=== PATIENT | female | born 1985 | race Caucasian/White ===

== ENCOUNTER → 2017-04-18 | Outpatient (CLI) | payer BC | END | disposition home or self-care (01) | LOC: LABWHC1 13:45 | PROVIDERS: ATTEND Obstetrics & Gynecology | DX: Z34.90 Encounter for supervision of normal pregnancy, unspecified, unspecified trimester (principal); Z3A.00 Weeks of gestation of pregnancy not specified | CPT/HCPCS: 36415; 84702 ==

== ENCOUNTER → 2017-06-16 | Outpatient (CLI) | payer BC ==
[2017-06-16 09:24] LABS: CH 30.7; CHCM 34.6; HCT 37.1 % (34.0-46.0); HDW 2.93; HGB 13.1 gm/dL (11.4-16.0); MCH 31.4 pg (25.0-35.0); MCHC 35.2 g/dL (31.0-37.0); MCV 89.3 fL (80.0-100.0); Mean Platelet Volume 8.4; RBC 4.16 m/uL (3.80-5.40); RDW 14.4 % (11.5-15.5); WBC 6.5 k/uL (3.8-10.6)
[2017-06-16 09:43] LABS: Glucose 70 mg/dL (74-99); Non-African American GFR(MDRD) >60 (>60 ml/min/1.73 sqM)
[2017-06-16 10:13] LABS: Hepatitis B Surface Ag Index 0.07
== END | disposition home or self-care (01) ==
LOC: LABWHC1 09:00
PROVIDERS: ATTEND Obstetrics & Gynecology
DX: Z34.81 Encounter for supervision of other normal pregnancy, first trimester (principal)
CPT/HCPCS: 36415; 82565; 82947; 85027; 86762; 86780; 86850; 86900; 86901; 87340

== ENCOUNTER 2017-11-30 19:16 | Inpatient (IN) | payer BC ==
[2017-11-30] MEDS ORDERED: OXYTOCIN 10 UNIT/ML 1 ML VIAL IM PRN (20:21)
[2017-11-30] MEDS ORDERED: METHYLERGONOVINE 0.2 MG/ML 1 ML AMP IM PRN (20:21)
[2017-11-30] MEDS ORDERED: CARBOPROST TROMETHAMINE 250 MCG/ML 1 ML AMP IM PRN (20:21)
[2017-11-30] MEDS ORDERED: TERBUTALINE 1 MG/ML VIAL SQ PRN (20:21)
[2017-11-30] MEDS ORDERED: LIDOCAINE 1% (PF) 10 MG/ML (30 ML SDV) SQ PRN (20:21)
[2017-11-30] MEDS ORDERED: LACTATED RINGERS 1,000 ML IV SCH ×2 (20:30)
[2017-11-30] MEDS ORDERED: BUPIVACAINE (PF) 0.25% 30 ML VIAL ONE (20:45)
[2017-11-30] MEDS ORDERED: fentaNYL (PF) 50 MCG/ML 5 ML AMP ONE (20:45)
[2017-11-30] MEDS ORDERED: SODIUM CHLORIDE 0.9% 100 ML BAG ONE (20:45)
[2017-11-30 21:10] LABS: Basophils % (A) 0 %; Eosinophils % (A) 0 %; HCT 38.2 % (34.0-46.0); HGB 13.4 gm/dL (11.4-16.0); Lymphocytes # (A) 1.1 k/uL (1.0-4.8); Lymphocytes % (A) 13 %; MCH 33.3 pg (25.0-35.0); MCHC 35.1 g/dL (31.0-37.0); Mean Platelet Volume 8.7; Monocytes # (A) 0.4 k/uL (0-1.0); Monocytes % (A) 4 %; Neutrophils # (A) 7.1 k/uL (1.3-7.7); Neutrophils % (A) 82 %; Platelet Count 126 k/uL (150-450); RBC 4.02 m/uL (3.80-5.40); RDW 14.7 % (11.5-15.5); WBC 8.7 k/uL (3.8-10.6)
[2017-11-30 21:19] VITALS: BMI 41.7
[2017-11-30] MEDS ORDERED: WITCH HAZEL 1 EACH MED..PAD TOPICAL PRN (22:27)
[2017-11-30] MEDS ORDERED: diphenhydrAMINE 50 MG CAP PO PRN (22:27)
[2017-11-30] MEDS ORDERED: ZOLPIDEM 5 MG TAB PO PRN (22:27)
[2017-11-30] MEDS ORDERED: diphenhydrAMINE 25 MG CAP PO PRN (22:27)
[2017-11-30] MEDS ORDERED: IBUPROFEN 600 MG TAB PO PRN (22:27)
[2017-11-30] MEDS ORDERED: HYDROCORTISONE 2.5% RECTAL CREAM 30 GM TUBE RECTAL PRN (22:27)
[2017-11-30] MEDS ORDERED: SIMETHICONE 80 MG CHEWABLE PO PRN (22:27)
[2017-11-30] MEDS ORDERED: ACETAMINOPHEN TAB 325 MG TAB PO PRN (22:27)
[2017-11-30] MEDS ORDERED: diphenhydrAMINE 50 MG/ML 1 ML VIAL IVP PRN ×2 (22:27)
[2017-11-30] MEDS ORDERED: BENZOCAINE/MENTHOL SPRAY 1 GM/SPRAY AEROSOL TOPICAL PRN (22:27)
[2017-11-30] MEDS ORDERED: LANOLIN CREAM 5 GM TUBE TOPICAL PRN (22:27)
[2017-11-30] MEDS ORDERED: OXYTOCIN 20 UNITS/1000 ML NS 1,000 ML IV SCH (22:30)
--- NOTE | 2017-11-30 22:33 | P.HPOB ---
History of Present Illness H&P Date: 11/30/17 Chief Complaint: Labor 32 year old presents at 38 weeks 6 days in active labor. Her cervix changed from 2 to 4cm dilated, 70% effaced, -2 station. She is deborah every 2-4 minutes. heart tones 130-135 with moderate variability and reactive. Review of Systems All systems: negative Constitutional: Denies chills, Denies fever Eyes: denies blurred vision, denies pain Ears, nose, mouth and throat: Denies headache, Denies sore throat Cardiovascular: Denies chest pain, Denies shortness of breath Respiratory: Denies cough Gastrointestinal: Denies abdominal pain, Denies diarrhea, Denies nausea, Denies vomiting Genitourinary: Denies dysuria, Denies hematuria Musculoskeletal: Denies myalgias Integumentary: Denies pruritus, Denies rash Neurological: Denies numbness, Denies weakness Psychiatric: Denies anxiety, Denies depression Endocrine: Denies fatigue, Denies weight change Past Medical History Past Medical History: No Reported History Additional Past Medical History / Comment(s): OB history: First was a for distress. Her next three were successful . This is her fifth and she has been seeing Dr Brown since 7 weeks.O+, abs neg, Rub Imm, RPR NR, Hep B neg. Platelets have been checked with every trimester and normal. Normal 1hr GTT. GBS neg. History of Any Multi-Drug Resistant Organisms: None Reported Past Surgical History: Section, Tonsillectomy Additional Past Surgical History / Comment(s): Oral surgery Past Anesthesia/Blood Transfusion Reactions: No Reported Reaction Past Psychological History: No Psychological Hx Reported Smoking Status: Never smoker Past Alcohol Use History: None Reported Past Drug Use History: None Reported - Past Family History Father Family Medical History: No Reported History Medications and Allergies Home Medications Medication Instructions Recorded Confirmed Type Jqg-Otxd-Sdozj Acid 1 each PO DAILY 03/18/14 11/30/17 History [-U Capsule] Allergies Allergy/AdvReac Type Severity Reaction Status Date / Time Sulfa (Sulfonamide Allergy Rash/Hives Verified 11/30/17 19:25 Antibiotics) Exam Osteopathic Statement: *. No significant issues noted on an osteopathic structural exam other than those noted in the History and Physical/Consult. - Vital Signs Vital signs: Vital Signs Temp Pulse Resp BP Pulse Ox 11/30/17 21:01 97.5 F L 83 16 131/76 99 11/30/17 20:28 97.5 F L 83 16 131/76 Intake and Output 11/30/17 11/30/17 11/30/17 06:59 14:59 22:59 Other: Weight 110.223 kg Patient Weight 12/01/17 06:59 Weight 110.223 kg Heart: Regular rate and rhythm Lungs: Clear to auscultation bilaterally Abdomen: Soft, nontender Extremities: Negative Homans sign Results Result Diagrams: 11/30/17 20:20 Abnormal Lab Results - Last 24 Hours (Table) 11/30/17 Range/Units 20:20 Plt Count 126 L (150-450) k/uL Assessment and Plan (1) Normal labor Current Visit: No Status: Acute Code(s): O80 - ENCOUNTER FOR FULL-TERM UNCOMPLICATED DELIVERY; Z37.9 - OUTCOME OF DELIVERY, UNSPECIFIED SNOMED Code(s ): 41617529 Plan: 1. Admit to family place 2. Epidural for pain control 3. Anticipate normal vaginal delivery
--- NOTE | 2017-11-30 22:37 | P.PROBDLV ---
Vaginal Delivery Note - . Vaginal Delivery Note: 2-year-old presents at 38 weeks and 6 days in active labor. Her cervix was 2 cm in triage and changed to 4 cm dilated, 70% effaced, -2 station. She is deborah every 2-4 minutes. heart tones 130 to 135 with moderate variability and reactive. Patient was given an epidural for pain control. Soon after that amniotomy was performed when she was 7 cm dilated 90% effaced and -1 station at 2101, clear fluid noted. The patient started to notice that her right eye seems droopy the family noticed that as well. 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 The epidural was then pulled. Her eye symptoms resolved soon after this. Her cervix is completely dilated at 2205. She pushed, and delivered a viable male over intact perineum at 2210. Head delivered OA , anterior shoulder delivered gentle downward traction followed by posterior shoulder and rest of body. Nose and mouth bulb suctioned, cord clamped and cut , infant placed on mother's abdomen. Apgars 9, 9, weight 8 lbs. 3 oz. Placenta delivered manually after the cord evulsed, at 2221. The placenta was inspected and all pieces seem to be there. Vagina, cervix, perineum inspected. No lacerations noted. Estimated blood loss 200 mL. Mother and baby in stable condition.
--- NOTE | 2017-12-01 06:10 | P.PNOBGVD ---
Subjective - Subjective Patient reports: Reports appetite normal, Reports voiding normally, Reports pain well controlled, Reports ambulating normally : doing well Objective - Latest Vital Signs Latest vital signs: Vital Signs Temp Pulse Resp BP Pulse Ox 12/01/17 04:00 98.1 F 84 16 129/71 12/01/17 00:23 98.5 F 94 16 104/63 11/30/17 23:53 96 16 108/61 11/30/17 23:23 93 16 110/70 11/30/17 23:08 85 16 112/60 11/30/17 22:53 88 16 131/59 11/30/17 22:38 99 F 85 16 119/60 11/30/17 22:23 90 16 120/58 11/30/17 21:01 97.5 F L 83 16 131/76 99 11/30/17 20:28 97.5 F L 83 16 131/76 Intake and Output 11/30/17 11/30/17 12/01/17 14:59 22:59 06:59 Intake Total 1000 Output Total 200 200 Balance -200 800 Intake: IV 1000 Lactated Ringers 1,000 ml 1000 @ 999 mls/hr IV .Q1H1M SEVERIANO Rx#:[id number] Output: Estimated Blood Loss 200 200 Other: # Voids 1 Weight 110.223 kg Patient Weight 12/01/17 06:59 Weight 110.223 kg - Exam Lungs: bilateral: normal Chest: Normal S1, Normal S2 Extremities: Present: normal Abdomen: Present: normal appearance, soft Uterus: Present: normal, firm - Labs Labs: Abnormal Lab Results - Last 24 Hours (Table) 11/30/17 Range/Units 20:20 Plt Count 126 L (150-450) k/uL Assessment and Plan Assessment: Post day #1. Patient is resting without complaints. Patient has had normal lochia. Uterus is firm nontender. My impression is that this is a normal course. Plan is to continue routine care and most likely discharge home tomorrow. (1) Normal labor and delivery Current Visit: No Status: Acute Priority: High Code(s): O80 - ENCOUNTER FOR FULL-TERM UNCOMPLICATED DELIVERY SNOMED Code(s): 17373214
[2017-12-01] MEDS ORDERED: BUPIVACAINE (PF) 0.25% 25 ML, fentaNYL (PF) 200 MCG in SODIUM CHLORIDE 0.9% 71 ML EPIDURAL ONE (08:00)
[2017-12-01] MEDS: SENNOSIDES-DOCUSATE SODIUM 1 EACH TAB PO SCH (08:05)
[2017-12-01] MEDS ORDERED: PRENATAL VIT-IRON-FOLIC ACID 1 EACH CAP PO SCH (09:00)
[2017-12-01 16:03] VITALS: RESP 16
[2017-12-02] MEDS: SENNOSIDES-DOCUSATE SODIUM 1 EACH TAB PO SCH ×2 (01:46→07:57)
--- NOTE | 2017-12-02 06:11 | P.PNOBGVD ---
Subjective - Subjective Patient reports: Reports appetite normal, Reports voiding normally, Reports pain well controlled, Reports ambulating normally : doing well Objective - Latest Vital Signs Latest vital signs: Vital Signs Temp Pulse Resp BP 12/02/17 00:00 98.2 F 80 16 136/73 12/01/17 20:00 98.5 F 84 16 131/84 12/01/17 16:02 97.2 F L 80 16 128/79 12/01/17 12:45 97.9 F 79 20 123/80 12/01/17 08:08 97.9 F 83 16 125/75 Intake and Output 12/01/17 12/01/17 12/02/17 14:59 22:59 06:59 Other: # Voids 1 1 1 - Exam Lungs: bilateral: normal Chest: Normal S1, Normal S2 Extremities: Present: normal Abdomen: Present: normal appearance, soft Uterus: Present: normal, firm Assessment and Plan Assessment: Post day #2. Patient is resting without new complaints. Vital signs are stable she is afebrile. Uterus is firm nontender and she continues to have normal lochia. My impression is she had normal course. Plan is to discharge home later today. (1) Normal labor and delivery Current Visit: No Status: Acute Priority: High Code(s): O80 - ENCOUNTER FOR FULL-TERM UNCOMPLICATED DELIVERY SNOMED Code(s): 35759902
--- NOTE | 2017-12-02 06:13 | P.DS ---
Providers Date of admission: 11/30/17 20:13 Expected date of discharge: 12/02/17 Attending physician: Enmanuel Brown Primary care physician: Stated None - Discharge Diagnosis(es) (1) Normal labor and delivery Current Visit: No Status: Acute Priority: High Hospital Course: Please see dictated H&P per Dr. Duran on this patient's admission. Brief summary is a pleasant 32-year-old 5 para 4 female 38-6/7 weeks gestation admitted to labor and delivery in active labor. Patient's subsequent goes on to have a vaginal after section of a viable male infant. Please see dictated delivery note. 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 she also had manual extraction of placenta secondary to cord avulsion. Patient' s bleeding was normal and on or 2's felt to be stable for discharge home follow up with me in 6 weeks. Procedures: Vaginal after section and manual removal of placenta. Patient Condition at Discharge: Good Plan - Discharge Summary New Discharge Prescriptions: New Ibuprofen [Motrin] 600 mg PO Q6HR PRN #40 tab PRN Reason: Mild Pain Or Fever >= 100.5 No Action Vgc-Tdhp-Toudq Acid [-U Capsule] 1 each PO DAILY Discharge Medication List Afi-Lnxs-Bqamo Acid [-U Capsule] 1 each PO DAILY 03/18/14 [ History] Ibuprofen [Motrin] 600 mg PO Q6HR PRN #40 tab 12/02/17 [Rx] Follow up Appointment(s)/Referral(s): Enmanuel Brown MD [STAFF PHYSICIAN] - 6 Weeks Patient Instructions/Handouts: Vaginal Delivery (DC) Activity/Diet/Wound Care/Special Instructions: No intercourse or anything per vagina for 6 weeks. Please call if any fever, chills, excessive vaginal bleeding, and/or abdominal pain. Discharge Disposition: HOME SELF-CARE
[2017-12-02 07:56] VITALS: BP 114/77; PULSE 83; TEMP 97.7
== END 2017-12-02 09:50 | disposition home or self-care (01) | DRG 767 ==
LOC: FBPOP 19:16 → 4FBP 20:13
PROVIDERS: ADMIT Obstetrics & Gynecology; ATTEND Obstetrics & Gynecology
PROC: 10E0XZZ Delivery of Products of Conception, External Approach (ICD-10-PCS; principal; 2017-11-30)
PROC: 10D17Z9 Manual Extraction of Products of Conception, Retained, Via Natural or Artificial Opening (ICD-10-PCS; 2017-11-30)
PROC: 00HU33Z Insertion of Infusion Device into Spinal Canal, Percutaneous Approach (ICD-10-PCS; 2017-11-30)
PROC: 3E0R3BZ Introduction of Anesthetic Agent into Spinal Canal, Percutaneous Approach (ICD-10-PCS; 2017-11-30)
DX: O34.211 Maternal care for low transverse scar from previous cesarean delivery (principal); G90.2 Horner's syndrome; O99.354 Diseases of the nervous system complicating childbirth; O73.0 Retained placenta without hemorrhage; N85.8 Other specified noninflammatory disorders of uterus; Z3A.38 38 weeks gestation of pregnancy; Z37.0 Single live birth; Z79.899 Other long term (current) drug therapy
CPT/HCPCS: 59025; 84112; 85025; 88307; 99213

== ENCOUNTER 2017-12-03 13:47 | Emergency (ER) | payer BC ==
--- NOTE | 2017-12-03 14:13 | ED ---
Extremity Problem HPI - General Chief complaint: Extremity Problem,Nontraumatic Stated complaint: knee pain Time Seen by Provider: 12/03/17 13:54 Source: patient Mode of arrival: ambulatory Limitations: no limitations - History of Present Illness Initial comments: This is a 32 year old female who presents with a chief complaint of right knee pain. The patient has a significant history of varicose veins in the lower extremities. She was recently and gave over the weekend. She admits to falling several days ago on the left knee, but denies trauma to the right knee. The pain is worse with light touch over the affected area. She denies any current medications except a vitamin. Denies fever,chills. No prior DVT - Related Data Home Medications Medication Instructions Recorded Confirmed Fxg-Lmgb-Uhrov Acid 1 cap PO HS 03/18/14 12/03/17 [-U Capsule] Previous Rx's Medication Instructions Recorded Ibuprofen [Motrin] 600 mg PO Q8HR PRN #30 tab 12/03/17 Allergies Allergy/AdvReac Type Severity Reaction Status Date / Time Sulfa (Sulfonamide Allergy Rash/Hives Verified 12/03/17 13:55 Antibiotics) Review of Systems ROS Statement: Those systems with pertinent positive or pertinent negative responses have been documented in the HPI. ROS Other: All systems not noted in ROS Statement are negative. Past Medical History Past Medical History: No Reported History Additional Past Medical History / Comment(s): OB history: First was a for distress. Her next three were successful . This is her fifth and she has been seeing Dr Brown since 7 weeks.O+, abs neg, Rub Imm, RPR NR, Hep B neg. Platelets have been checked with every trimester and normal. Normal 1hr GTT. GBS neg. History of Any Multi-Drug Resistant Organisms: None Reported Past Surgical History: Section, Tonsillectomy Additional Past Surgical History / Comment(s): Oral surgery Past Anesthesia/Blood Transfusion Reactions: No Reported Reaction Past Psychological History: No Psychological Hx Reported Smoking Status: Never smoker Past Alcohol Use History: None Reported Past Drug Use History: None Reported - Past Family History Father Family Medical History: No Reported History General Exam Limitations: no limitations General appearance: alert, in no apparent distress Eye exam: Present: normal appearance, PERRL, EOMI. Absent: scleral icterus, conjunctival injection, periorbital swelling Respiratory exam: Present: normal lung sounds bilaterally. Absent: respiratory distress, wheezes, rales, rhonchi, stridor Cardiovascular Exam: Present: regular rate, normal rhythm, normal heart sounds. Absent: systolic murmur, diastolic murmur, rubs, gallop, clicks Extremities exam: Present: normal inspection, full ROM, normal capillary refill , other (Tender with palpation over the right knee. There is an erythematous visible varicose vein that is warm and boggy with palpation.). Absent: tenderness, pedal edema, joint swelling, calf tenderness Neurological exam: Present: alert, oriented X3, CN II-XII intact Psychiatric exam: Present: normal affect, normal mood Skin exam: Present: warm, dry, intact, normal color. Absent: rash Course Vital Signs 12/03/17 13:49 Temperature 98.0 F Pulse Rate 70 Respiratory 20 Rate Blood Pressure 133/66 O2 Sat by Pulse 99 Oximetry Medical Decision Making - Medical Decision Making 32-year-old female presented emergency department for right knee swelling and discomfort. Patient also shows superficial thrombophlebitis. Patient treated with anti-inflammatories, warm compresses and leg compression. Disposition Clinical Impression: Superficial thrombophlebitis Disposition: HOME SELF-CARE Condition: Stable Instructions: Superficial Thrombophlebitis (ED) Additional Instructions: Please return to the Emergency Department if symptoms worsen or any other concerns. Prescriptions: Ibuprofen [Motrin] 600 mg PO Q8HR PRN #30 tab PRN Reason: Pain Referrals: Sridhar Varghese DO [Primary Care Provider] - 1-2 days Time of Disposition: 15:35
--- NOTE | 2017-12-03 15:41 | US ---
EXAMINATION TYPE: US venous doppler duplex LE RT DATE OF EXAM: 12/03/2017 2:04 PM COMPARISON: NONE CLINICAL HISTORY: Pain. Redness and tenderness right knee. History of varicose veins SIDE PERFORMED: right TECHNIQUE: The lower extremity deep venous system is examined utilizing real time linear array sonog elidia with graded compression, doppler sonography and color-flow sonography. VESSELS IMAGED: External Iliac Vein (EIV) Common Femoral Vein Deep Femoral Vein Greater Saphenous Vein * Femoral Vein Popliteal Vein Small Saphenous Vein * Proximal Calf Veins (* superficial vessels) Right Leg: No evidence of DVT. Superficial thrombus noted right anterior knee within varicose veins Grayscale, color doppler, spectral doppler imaging performed of the deep veins of the right lower ext remity. There is normal flow, compressibility, vascular waveforms. IMPRESSION: No ultrasound evidence for acute DVT in the right lower extremity. Acute thrombus noted in superficial anterior vein at level of knee towards end of study.
[2017-12-03 15:47] VITALS: BP 138/78; PULSE 72; RESP 16; TEMP 97
== END 2017-12-03 15:40 | disposition home or self-care (01) ==
LOC: EC 13:47
DX: O87.0 Superficial thrombophlebitis in the puerperium (principal); Z79.899 Other long term (current) drug therapy; Z88.2 Allergy status to sulfonamides
CPT/HCPCS: 99283

== ENCOUNTER → 2018-12-31 | Outpatient (CLI) | payer BC | END | disposition home or self-care (01) | LOC: LABWHC1 15:53 | DX: Z01.812 Encounter for preprocedural laboratory examination (principal) | CPT/HCPCS: 36415; 84702 ==

== ENCOUNTER → 2019-02-23 | Outpatient (CLI) | payer BC | END | disposition home or self-care (01) | LOC: LABWHC1 09:28 | PROVIDERS: ATTEND Obstetrics & Gynecology Reproductive Endocrinology | DX: E34.9 Endocrine disorder, unspecified (principal) | CPT/HCPCS: 36415; 82670; 84144 ==

== ENCOUNTER → 2019-03-01 | Outpatient (CLI) | payer BC ==
[2019-03-01 17:09] LABS: Progesterone 33.4 ng/mL
== END ==
LOC: LABWHC1 09:12
PROVIDERS: ATTEND Obstetrics & Gynecology Reproductive Endocrinology
DX: Z32.00 Encounter for pregnancy test, result unknown (principal)
CPT/HCPCS: 36415; 82670; 84144; 84702

== ENCOUNTER → 2019-03-04 | Outpatient (CLI) | payer BC ==
[2019-03-04 23:52] LABS: Progesterone 54.4 ng/mL
== END | disposition home or self-care (01) ==
LOC: LABWHC1 16:34
PROVIDERS: ATTEND Obstetrics & Gynecology Reproductive Endocrinology
DX: Z32.00 Encounter for pregnancy test, result unknown (principal)
CPT/HCPCS: 36415; 82670; 84144; 84702

== ENCOUNTER → 2019-03-09 | Outpatient (CLI) | payer BC | END | disposition home or self-care (01) | LOC: LABWHC1 16:07 | PROVIDERS: ATTEND Obstetrics & Gynecology Reproductive Endocrinology | DX: Z32.01 Encounter for pregnancy test, result positive (principal) | CPT/HCPCS: 36415; 82670; 84144; 84702 ==

== ENCOUNTER 2019-10-25 19:59 | Outpatient (CLI) | payer BC ==
[2019-10-25 20:53] VITALS: BP 117/79; PULSE 95; RESP 16; TEMP 98
--- NOTE | 2019-11-03 16:15 | P.MSEPDOC ---
Presenting Problems - Arrival Data Date of Arrival on Unit: 10/25/19 Time of Arrival on Unit: 19:59 Mode of Transport: Ambulatory - Complaint OB-Reason for Admission/Chief Complaint: Possible Onset of Labor Medical History - Information : 6 Para: 5 Term: 5 : 0 Abortions: Spontaneous or Elective: 0 Number of Living Children: 5 - Gestational Age Gestational Age by ANDREI (wks/days): 38 Weeks and 3 Days Review of Systems - Review of Systems Constitutional: No problems Breast: No problems ENT: No problems Cardiovascular: No problems Respiratory: No problems Gastrointestinal: No problems Genitourinary: No problems Musculoskeletal: No problems Neurological: No problems Skin: No problems Vital Signs - Temperature Temperature: 98 F Temperature Source: Oral - Pulse Right Brachial Pulse Rate: 95 Pulse Assessment Method: Automatic Cuff - Respirations Respiratory Rate: 16 Oxygen Delivery Method: Room Air O2 Sat by Pulse Oximetry: 98 - Blood Pressure Right Arm Blood Pressure: 117/79 Blood Pressure Mean: 91 Blood Pressure Source: Automatic Cuff Medical Screen Scoring (Pre) - Cervical Exam Dilation: 1-3 cm = 1 Effacement: Exam Deferred Membranes: Intact - Uterine Contractions Frequency: > 5 minutes apart = 1 Duration: > 40 seconds = 2 Intensity: N/A - Maternal Vital Signs Maternal Temperature: N/A Signs of Preeclampsia: N/A Maternal Respirations: N/A - Maternal Trauma Maternal Trauma: N/A - Assessment - Baby A Baseline FHR: 130 Heart Rate - NICHD Category: Category I (Normal) = 0 NST: Reactive Position: N/A Station: N/A - Total Score - Baby A Total Score - Baby A: 4 - Total Score - Baby B Total Score - Baby B: 4 - Total Score - Baby C Total Score - Baby C: 4 - Level of Risk - Baby A Level of Risk - Baby A: Low (0-5) - Level of Risk - Baby B Level of Risk - Baby B: Low (0-5) - Level of Risk - Baby C Level of Risk - Baby C: Low (0-5) Physician Notification (Pre) - Physician Notified Physician Notified Date: 10/25/19 Medical Screen Scoring (Post) - Cervical Exam Dilation: 1-3 cm = 1 Effacement: Exam Deferred Membranes: Intact - Uterine Contractions Frequency: > 5 minutes apart = 1 Duration: > 40 seconds = 2 Intensity: N/A - Maternal Vital Signs Maternal Temperature: N/A Signs of Preeclampsia: N/A Maternal Respirations: N/A - Pain Assessment Pain Scale Used: Numeric (1 - 10) Pain Intensity: 0 - Maternal Trauma Maternal Trauma: N/A - Assessment - Baby A Heart Rate: 125 Heart Rate - NICHD Category: Category I (Normal) = 0 NST: Reactive Position: N/A Station: N/A - Total Score Total Score - Baby A: 4 Total Score - Baby B: 4 Total Score - Baby C: 4 - Post Treatment Level of Risk Post Treatment Level of Risk - Baby A: Low (0-5) Physician Notification (Post) - Physician Notified Physician Notified Date: 10/25/19 Physician Notified Time: 22:17 Spoke With: Amirah Del Castillo Order Received: Yes - Notification Comment Comment: Reported no cevical change after 2 hours, pt no longer feeling contractions. D/c home and return for IOL 10/29/19 as planned. Disposition - Disposition OB Disposition: Discharge to home, Written follow up instructions reviewed Discharge Date: 10/25/19 Discharge Time: 22:19 I agree with the RN Medical Screening Exam: Yes Risk & Benefit of care provided described in d/c instruction: Yes Diagnosis: FALSE LABOR AT OR AFTER 37 COMPLETED WEEKS OF GESTATION
== END 2019-10-25 22:19 | disposition home or self-care (01) ==
LOC: FBPOP 19:59
PROVIDERS: ATTEND Obstetrics & Gynecology
DX: O47.1 False labor at or after 37 completed weeks of gestation (principal); Z3A.38 38 weeks gestation of pregnancy
CPT/HCPCS: 59025; 99213

== ENCOUNTER 2019-10-29 00:35 | Inpatient (IN) | payer BC ==
--- NOTE | 2019-10-28 08:02 | P.HPOB ---
History of Present Illness H&P Date: 10/28/19 Chief Complaint: Requested induction of labor. This patient is a pleasant 34-year-old 6 para 5 female estimated date of confinement 11/05/2019 estimated gestational age 39 weeks which is confirmed by known impregnation. Patient had a embryo transfer done on February 18 of this year. 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 Patient's embryo did have testing done on it was 46 excess X. Patient has been monitored with nonstress tests and growth ultrasounds which have been normal. Patient has had a previous section with for successful VBACs and requests at this time which I feel is appropriate. care has oth erwise been uncomplicated. Review of Systems Genitourinary: Reports Menstruation: Reports amenorrhea Past Medical History Past Medical History: No Reported History, Hyperlipidemia Additional Past Medical History / Comment(s): Patient had a section for her first due to distress with for successful VBACs thereafter. History of Any Multi-Drug Resistant Organisms: None Reported Past Surgical History: Section, Tonsillectomy Additional Past Surgical History / Comment(s): Oral surgery Past Anesthesia/Blood Transfusion Reactions: No Reported Reaction Past Psychological History: No Psychological Hx Reported Smoking Status: Never smoker Past Alcohol Use History: None Reported Past Drug Use History: None Reported - Past Family History Father Family Medical History: No Reported History Medications and Allergies Home Medications Medication Instructions Recorded Confirmed Type Nnf-Vuut-Smivu Acid 1 cap PO HS 03/18/14 10/25/19 History [-U Capsule] Allergies Allergy/AdvReac Type Severity Reaction Status Date / Time Sulfa (Sulfonamide Allergy Rash/Hives Verified 10/25/19 20:34 Antibiotics) Exam - OBG Physical Exam Abdomen: bowel sounds normal, no diffuse tenderness, no bruit present, no guarding noted, no hepatomegaly, no splenomegaly, no mass Vulva: both: normal Vagina: normal moisture, no discharge Cervix: no lesion (Cervix and office is 3 cm dilated 50% effaced), no discharge Uterus: enlarged (Fundal height 38 cm) Results blood work shows she is O positive, rubella immune, RPR nonreactive, hepatitis B negative, Glucola was normal, group B strep was negative, growth ultrasounds have been normal, genetic testing on the embryo was 46 X,X. Assessment and Plan Assessment: This is a pleasant 34-year-old 6 para 5 female 39 weeks gestation with surrogate , previous section desires repeat and delivery at this time. Plan is induction of labor and anticipate vaginal after section. (1) 39 weeks gestation of Status: Acute Code(s): Z3A.39 - 39 WEEKS GESTATION OF SNOMED Code(s): 34306474 (2) Previous delivery affecting Status: Acute Priority: High Code(s): O34.21 - MATERNAL CARE FOR SCAR FROM PREVIOUS * DO NOT USE * SNOMED Code(s): 595482448 (3) Elective induction of labor planned Status: Acute Code(s): AFG1656 - SNOMED Code(s): 016214948 (4) Surrogate Status: Acute Code(s): Z33.3 - STATE, GESTATIONAL CARRIER SNOMED Code(s): 078111297
[2019-10-29] MEDS ORDERED: OXYTOCIN 10 UNIT/ML 1 ML VIAL IM PRN (01:19)
[2019-10-29] MEDS ORDERED: OXYTOCIN 30 UNITS/500 ML NS 30 UNIT in SALINE 1 500ML.BAG IV SCH (01:19)
[2019-10-29] MEDS ORDERED: METHYLERGONOVINE 0.2 MG/ML 1 ML AMP IM PRN (01:19)
[2019-10-29] MEDS ORDERED: TERBUTALINE 1 MG/ML VIAL SQ PRN (01:19)
[2019-10-29] MEDS ORDERED: CARBOPROST TROMETHAMINE 250 MCG/ML 1 ML AMP IM PRN (01:19)
[2019-10-29] MEDS ORDERED: LIDOCAINE 0.5% (PF) 5 MG/ML (50 ML SDV) SQ PRN (01:19)
[2019-10-29] MEDS: LACTATED RINGERS 1,000 ML IV SCH ×3 (01:30→02:59)
[2019-10-29 01:43] LABS: Basophils # (A) 0.1 k/uL (0-0.2); Basophils % (A) 1 %; Eosinophils # (A) 0.1 k/uL (0-0.7); Eosinophils % (A) 1 %; HCT 37.7 % (34.0-46.0); HGB 13.1 gm/dL (11.4-16.0); Lymphocytes # (A) 1.8 k/uL (1.0-4.8); Lymphocytes % (A) 19 %; MCH 31.8 pg (25.0-35.0); MCHC 34.8 g/dL (31.0-37.0); MCV 91.3 fL (80.0-100.0); Mean Platelet Volume 11.1; Monocytes # (A) 0.4 k/uL (0-1.0); Monocytes % (A) 4 %; Neutrophils # (A) 7.3 k/uL (1.3-7.7); Neutrophils % (A) 75 %; Platelet Count 139 k/uL (150-450); RBC 4.13 m/uL (3.80-5.40); RDW 15.3 % (11.5-15.5); WBC 9.7 k/uL (3.8-10.6)
[2019-10-29] MEDS ORDERED: fentaNYL (PF) 50 MCG/ML 5 ML AMP ONE (02:06)
[2019-10-29] MEDS ORDERED: ePHEDrine SULFATE/0.9% NACL/PF 50 MG/5 ML SYRINGE IV ONE (02:06)
[2019-10-29] MEDS ORDERED: SODIUM CHLORIDE 0.9% 100 ML BAG ONE (02:06)
[2019-10-29] MEDS ORDERED: ROPIVACAINE 5MG/ML 20ML VIAL ONE (02:06)
[2019-10-29] MEDS ORDERED: BENZOCAINE/MENTHOL SPRAY 1 GM/SPRAY AEROSOL TOPICAL PRN (07:20)
[2019-10-29] MEDS ORDERED: diphenhydrAMINE 25 MG CAP PO PRN (07:20)
[2019-10-29] MEDS ORDERED: diphenhydrAMINE 50 MG/ML 1 ML VIAL IVP PRN (07:20)
[2019-10-29] MEDS ORDERED: SIMETHICONE 80 MG CHEWABLE PO PRN (07:20)
[2019-10-29] MEDS ORDERED: IBUPROFEN 600 MG TAB PO PRN (07:20)
[2019-10-29] MEDS ORDERED: WITCH HAZEL 1 EACH MED..PAD TOPICAL PRN (07:20)
[2019-10-29] MEDS ORDERED: ZOLPIDEM 5 MG TAB PO PRN (07:20)
[2019-10-29] MEDS ORDERED: ACETAMINOPHEN TAB 325 MG TAB PO PRN (07:20)
[2019-10-29] MEDS ORDERED: LANOLIN CREAM 5 GM TUBE TOPICAL PRN (07:20)
[2019-10-29] MEDS ORDERED: OXYTOCIN 20 UNITS/1000 ML NS 1,000 ML IV SCH (07:20)
[2019-10-29] MEDS ORDERED: BISACODYL 10 MG SUPP RECTAL PRN (07:20)
[2019-10-29] MEDS ORDERED: HYDROCORTISONE 2.5% RECTAL CREAM 30 GM TUBE RECTAL PRN (07:20)
[2019-10-29] MEDS ORDERED: SENNOSIDES-DOCUSATE SODIUM 1 EACH TAB PO SCH (08:00)
--- NOTE | 2019-10-29 08:22 | P.PROBDLV ---
Vaginal Delivery Note - . Vaginal Delivery Note: Normal spontaneous vaginal delivery () viable female infant Apgars 8 and 9 delivery time is 0651 hours. please see dictated H&P for intimate details of this patient's admission. In brief summary this is a pleasant 32-year-old 6 para 5 female 39 weeks gestation is admitted to labor and delivery earlier this morning with complaints of contractions found to be in early labor. Patient's 4-5 cm dilated and has an epidural placed for pain control. Thereafter she has artificial rupture membranes for clear fluid. Labor progresses and she does get some Pitocin for augmentation. Patient had a previous vaginal births after section 4 without difficulty. Patient progresses quickly she gets to complete. Patient pushes the head to the perineum the posterior perineum was supported. We have controlled delivery of infant's head over the intact perineum. Mouth and nares are bulb suctioned. There is no evidence of a nuchal cord. With gentle downward traction we then have deliver the anterior and posterior shoulder and rest this 's body. This is a vigorous viable female infant Apgars 8 and 9 delivery time is 0651 hours. After delivery of the the umbilical cord is doubly clamped and cut. Infant is then handed off to the nurses in attendance. The placenta then does spontaneously delivered I did avulse the cord however the placenta spontaneously delivers with maternal effort without complications. It is completely intact. Inspection of perineum shows a superficial first-degree lacerations repaired with a [id number]-vq-hfgrt 3-0 Vicryl stitch. Estimated blood loss is 150 mL. There are no complications. All counts correct 3. Infant is taken to the surgery it family and mother is allowed to rest.
--- NOTE | 2019-10-29 08:23 | P.PN ---
Progress Note - Text Progress Note Date: 10/29/19 Patient is requesting to go home later this morning. Bleeding is normal. She's tolerating regular diet and urinating without difficulty. Plan is to watch her until approximately noon and that she continues to well go home follow up with me in 6 weeks.
--- NOTE | 2019-10-29 08:28 | P.DS ---
Providers Date of admission: 10/29/19 00:35 Expected date of discharge: 10/29/19 Attending physician: Enmanuel Brown Primary care physician: Stated None - Discharge Diagnosis(es) (1) 39 weeks gestation of Please see dictated H&P for intimate details of this patient's admission. Brief summary is a pleasant 34-year-old 6 para 5 female 39 weeks gestation who is admitted to labor and delivery in active labor. She was on have a vaginal after section viable female infant. Please see dictated delivery note. Patient's baby is the product of surrogacy and therefore patient wishes to go home soon after delivery as long she was feeling well. Patient discharged home later today as long as her lochia continues to be normal. Follow-up with me in 6 weeks. Current Visit: No Status: Acute (2) Previous delivery affecting Current Visit: No Status: Acute Priority: High (3) Elective induction of labor planned Current Visit: No Status: Acute (4) Surrogate Current Visit: No Status: Acute Plan - Discharge Summary New Discharge Prescriptions: New Ibuprofen [Motrin] 600 mg PO Q6HR PRN #30 tab PRN Reason: Mild Pain Or Fever >= 100.5 No Action Qua-Nvts-Frpsq Acid [-U Capsule] 1 cap PO HS Discharge Medication List Ltw-Wiyl-Qmecd Acid [-U Capsule] 1 cap PO HS 03/18/14 [History] Ibuprofen [Motrin] 600 mg PO Q6HR PRN #30 tab 10/29/19 [Rx] Follow up Appointment(s)/Referral(s): Enmanuel Brown MD [STAFF PHYSICIAN] - 6 Weeks Patient Instructions/Handouts: Vaginal Delivery (DC) Activity/Diet/Wound Care/Special Instructions: No intercourse or anything per vagina for 6 weeks. Please call if any fever, chills, excessive vaginal bleeding, and/or abdominal pain. Discharge Disposition: HOME SELF-CARE
[2019-10-29 09:38] VITALS: PULSE 91
[2019-10-29 12:49] VITALS: BP 132/77; RESP 18; TEMP 97.7
== END 2019-10-29 13:40 | disposition home or self-care (01) | DRG 807 ==
LOC: 4FBP 00:35
PROVIDERS: ADMIT Obstetrics & Gynecology; ATTEND Obstetrics & Gynecology
PROC: 0HQ9XZZ Repair Perineum Skin, External Approach (ICD-10-PCS; principal; 2019-10-29)
PROC: 3E0R3BZ Introduction of Anesthetic Agent into Spinal Canal, Percutaneous Approach (ICD-10-PCS; principal; 2019-10-29)
PROC: 00HU33Z Insertion of Infusion Device into Spinal Canal, Percutaneous Approach (ICD-10-PCS; principal; 2019-10-29)
PROC: 10E0XZZ Delivery of Products of Conception, External Approach (ICD-10-PCS; principal; 2019-10-29)
DX: O34.219 Maternal care for unspecified type scar from previous cesarean delivery (principal); Z37.0 Single live birth; O70.0 First degree perineal laceration during delivery; Z3A.39 39 weeks gestation of pregnancy; Z88.2 Allergy status to sulfonamides
CPT/HCPCS: 85025; 86850; 86900; 86901

== ENCOUNTER → 2023-12-30 | Outpatient (CLI) | payer BC ==
--- NOTE | 2023-12-31 20:06 | MM ---
Reason for Exam: Screening (asymptomatic). Baseline mammogram. Patient History: Menarche at age 11. First Full-Term at age 27. Last menstrual period: 12/15/2023 Risk Values: Agatha 5 year model risk: 0.6%. NCI Lifetime model risk: 11.1%. Prior Study Comparison: Patient's first Mammogram. No prior studies available for comparison. Tissue Density: There are scattered fibroglandular densities. Findings: Analyzed By CAD. Reniform nodule lateral left breast compatible with a small intramammary lymph node. No significant mass, suspicious microcalcification, or other discrete abnormality is seen. Overall Assessment: Benign, BI-RAD 2 Management: Screening Mammogram of both breasts in 1 year. . Patient should continue monthly self-breast exams. A clinical breast exam by your physician is recommended on an annual basis. This exam should not preclude additional follow-up of suspicious palpable abnormalities. Note on Agatha scores and lifetime risk: 1. A Agatha score greater than 3% is considered moderate risk. If this is the case, consider specialist referral to assess eligibility for a risk reducing agent. 2. If overall lifetime risk for the development of breast cancer is 20% or higher, the patient may qualify for future screening with alternating mammogram and breast MRI. Electronically signed and approved by: Kelli Diaz M.D. Radiologist
== END | disposition home or self-care (01) ==
LOC: RADMAMWWP 08:03
PROVIDERS: ATTEND Obstetrics & Gynecology
DX: Z12.31 Encounter for screening mammogram for malignant neoplasm of breast (principal)
CPT/HCPCS: 77063; 77067

== ENCOUNTER 2024-05-27 20:38 | Emergency (ER) | payer BC ==
[2024-05-27 20:51] VITALS: RESP 18
--- NOTE | 2024-05-27 21:49 | ED ---
General Adult HPI - General Chief complaint: Headache Stated complaint: chills GURPREET Time Seen by Provider: 05/27/24 20:58 Source: patient Mode of arrival: ambulatory Limitations: no limitations - History of Present Illness Initial comments: Patient is a 39-year-old woman who presents with constellation of symptoms that began approximately 2 days ago. Patient noticed that she was developing fevers, body aches, diffuse headache the following day she began having some cough. Patient does note that prior to the onset she had done a Filipino koenig but she t hought that she had coughed this up. She is not currently short of breath. Onset/Timin -: days(s) Location: head Consistency: constant Improves with: none Worsens with: none Associated Symptoms: cough, fever/chills, other Treatments Prior to Arrival: none - Related Data Home Medications Medication Instructions Recorded Confirmed [id number] Acid 1 cap PO HS 03/18/14 10/29/19 [-U Capsule] Previous Rx's Medication Instructions Recorded Ibuprofen [Motrin] 600 mg PO Q6HR PRN #30 tab 10/29/19 Azithromycin [Zithromax] 0 mg PO DIRECTED #6 tab 05/27/24 Allergies Allergy/AdvReac Type Severity Reaction Status Date / Time Sulfa (Sulfonamide Allergy Rash/Hives Verified 05/27/24 20:50 Antibiotics) Review of Systems ROS Statement: Those systems with pertinent positive or pertinent negative responses have been documented in the HPI. ROS Other: All systems not noted in ROS Statement are negative. Constitutional: Reports: fever, chills. Denies: weakness Respiratory: Reports: cough. Denies: dyspnea, wheezes, hemoptysis Cardiovascular: Denies: chest pain, palpitations, edema, syncope Gastrointestinal: Denies: abdominal pain, nausea, vomiting, diarrhea Genitourinary: Denies: dysuria, hematuria Musculoskeletal: Reports: myalgia. Denies: back pain Skin: Denies: rash Neurological: Reports: headache. Denies: weakness Past Medical History Past Medical History: No Reported History Additional Past Medical History / Comment(s): OB history: First was a for distress. Her next three were successful . This is her fifth and she has been seeing Dr Brown since 7 weeks.O+, abs neg, Rub Imm, RPR NR, Hep B neg. Platelets have been checked with every trimester and normal. Normal 1hr GTT. GBS neg. History of Any Multi-Drug Resistant Organisms: None Reported Past Surgical History: Section, Tonsillectomy Additional Past Surgical History / Comment(s): Oral surgery Past Anesthesia/Blood Transfusion Reactions: No Reported Reaction Past Psychological History: No Psychological Hx Reported Smoking Status: Never smoker Past Alcohol Use History: None Reported Past Drug Use History: None Reported - Past Family History Father Family Medical History: No Reported History General Exam Limitations: no limitations General appearance: alert, in no apparent distress Head exam: Present: atraumatic, normocephalic Eye exam: Present: normal appearance. Absent: scleral icterus, conjunctival injection ENT exam: Present: normal oropharynx Neck exam: Present: normal inspection, full ROM. Absent: meningismus Respiratory exam: Present: rales (Right Base). Absent: respiratory distress, wheezes, rhonchi, stridor, chest wall tenderness, accessory muscle use Cardiovascular Exam: Present: normal rhythm, tachycardia, normal heart sounds. Absent: systolic murmur, diastolic murmur, rubs, gallop GI/Abdominal exam: Present: soft. Absent: distended, tenderness, guarding, rebound, rigid, mass, pulsatile mass, hernia Extremities exam: Present: normal inspection, normal capillary refill. Absent: pedal edema, calf tenderness Back exam: Present: normal inspection Neurological exam: Present: alert Skin exam: Present: warm, dry, intact, normal color. Absent: rash Course Vital Signs 05/27/24 05/28/24 20:47 01:18 Temperature 100.6 F H 98.3 F Pulse Rate 131 H 74 Respiratory 18 18 Rate Blood Pressure 122/91 112/75 O2 Sat by Pulse 99 96 Oximetry Medical Decision Making - Medical Decision Making Patient had chest x-ray that I interpreted as presence of bilateral lower lobe infiltrates right greater than left. Consistent with pneumonia. Was pt. sent in by a medical professional or institution (, PA, LOOM MECHANIC, urgent care, hospital, or usp...) When possible be specific @ -[No] Did you speak to anyone other than the patient for history (EMS, parent, family, police, friend...)? What history was obtained from this source @ -[No] Did you review nursing and triage notes (agree or disagree)? Why? @ -[I reviewed and agree with nursing and triage notes] Were old charts reviewed (outside hosp., previous admission, EMS record, old EKG, old radiological studies, urgent care reports/EKG's, usp records)? Report findings @ -[No old charts were reviewed] Differential Diagnosis (chest pain, altered mental status, abdominal pain women, abdominal pain men, vaginal bleeding, weakness, fever, dyspnea, syncope, headache, dizziness, GI bleed, back pain, seizure, CVA, palpatations, mental health, musculoskeletal)? @ -[Differential Dyspnea: Coronary syndrome, arrhythmia, tamponade, asthma, COPD, pulmonary embolism, pneumonia, pneumothorax, pulmonary effusion, anaphylaxis, diabetic ketoacidosis, flailed chest, pulmonary contusion, diaphragmatic rupture, anemia, neuromuscular, this is not meant to be an all-inclusive list. EKG interpreted by me (3pts min.). @ -[As above] X-rays interpreted by me (1pt min.). @ -[I interpreted as above CT interpreted by me (1pt min.). @ -[None done] U/S interpreted by me (1pt. min.). @ -[None done] What testing was considered but not performed or refused? (CT, X-rays, U/S, labs)? Why? @ -[None] What meds were considered but not given or refused? Why? @ -[None] Did you discuss the management of the patient with other professionals (professionals i.e. , PA, LOOM MECHANIC, lab, RT, psych nurse, social media community manager, extrusion operator, teacher, real estate utilization officer, case resource manager)? Give summary @ -[No] Was smoking cessation discussed for >3mins.? @ -[No] Was critical care preformed (if so, how long)? @ -[No] Were there social determinants of health that impacted care today? How? (Homelessness, low income, unemployed, alcoholism, drug addiction, transportation, low edu. Level, literacy, decrease access to med. care, fci, rehab)? @ -[No] Was there de-escalation of care discussed even if they declined (Discuss DNR or withdrawal of care, Hospice)? DNR status @ -[No] What co-morbidities impacted this encounter? (DM, HTN, Smoking, COPD, CAD, Cancer, CVA, ARF, Chemo, Hep., AIDS, mental health diagnosis, sleep apnea, morbid obesity)? @ -[None] Was patient admitted / discharged? Hospital course, mention meds given and route, prescriptions, significant lab abnormalities, going to OR and other pertinent info. @ -[This patient is 39-year-old woman with cough, dyspnea, pneumonia found on the x-ray. She is otherwise feeling well and would like to try course of outpatient antibiotics. It was discussed with patient that given the onset with the choking episode she must have follow-up if no improvement to rule out significant aspiration but at this point less likely given the bilateral findings. Undiagnosed new problem with uncertain prognosis? @ -[No] Drug Therapy requiring intensive monitoring for toxicity (Heparin, Nitro, Insulin, Cardizem)? @ -[No] Were any procedures done? @ -[No] Diagnosis/symptom? @ -[Acute pneumonia Acute, or Chronic, or Acute on Chronic? @ -[Acute Uncomplicated (without systemic symptoms) or Complicated (systemic symptoms)? @ -[Uncomplicated Side effects of treatment? @ -[No] Exacerbation, Progression, or Severe Exacerbation? @ -[No] Poses a threat to life or bodily function? How? (Chest pain, [place], [place], pneumonia, PE, COPD, DKA, ARF, appy, cholecystitis, CVA, Diverticulitis, Homicidal, Suicidal, threat to staff... and all critical care pts) @ -[Currently low, patient to have follow-up - Lab Data Lab Results 05/27/24 Range/Units 21:13 Influenza Type A (PCR) Not Detected (Not Detectd) Influenza Type B (PCR) Not Detected (Not Detectd) RSV (PCR) Not Detected (Not Detectd) SARS-CoV-2 (PCR) Not Detected (Not Detectd) Disposition Clinical Impression: Pneumonia Disposition: HOME SELF-CARE Condition: Good Instructions (If sedation given, give patient instructions): Pneumonia (ED) Prescriptions: Azithromycin [Zithromax] 0 mg PO DIRECTED #6 tab Is patient prescribed a controlled substance at d/c from ED?: No Referrals: Sridhar Varghese DO [Primary Care Provider] - 1-2 days
--- NOTE | 2024-05-27 22:23 | XR ---
EXAMINATION TYPE: XR chest 2V DATE OF EXAM: 05/27/2024 COMPARISON: NONE HISTORY: Cough TECHNIQUE: Frontal and lateral views of the chest are obtained. FINDINGS: Low lung volumes with right greater than left bibasilar opacities. And small right pleura l effusion. The cardiac silhouette size is within normal limits. The osseous structures are intact. IMPRESSION: Small right pleural effusion with right greater than left bilateral lower lung acute inf iltrates and/or atelectasis.
[2024-05-27] MEDS: IBUPROFEN 400 MG TAB PO STA (22:41)
[2024-05-27] MEDS: ACETAMINOPHEN TAB 325 MG TAB PO STA (22:42)
[2024-05-28] MEDS: AZITHROMYCIN 500 MG TAB PO STA (00:21)
[2024-05-28 01:22] VITALS: BP 112/75; PULSE 74; TEMP 98.3
== END 2024-05-28 01:22 | disposition home or self-care (01) ==
LOC: EC 20:38
DX: J18.9 Pneumonia, unspecified organism (principal); Z88.2 Allergy status to sulfonamides; Z90.89 Acquired absence of other organs
CPT/HCPCS: 87636; 71046; 99284; 96365; J0696